=== PATIENT | female | born 1955 | race Caucasian/White ===

== ENCOUNTER → 2021-03-10 | Outpatient (CLI) | payer MEDICARE, OTHER | LOC: RAD 09:07 → EDSTATUS 10:00 | DX: N13.70 Vesicoureteral-reflux, unspecified (principal); N18.9 Chronic kidney disease, unspecified; N39.0 Urinary tract infection, site not specified | CPT/HCPCS: 74455; Q9958 ==

== ENCOUNTER → 2021-05-17 | Outpatient (CLI) | payer MEDICARE, OTHER | LOC: NM 12:06 | DX: N13.70 Vesicoureteral-reflux, unspecified (principal); N28.89 Other specified disorders of kidney and ureter | CPT/HCPCS: 78708; A9562; J1940 ==